=== PATIENT | female | born 1950 | race Caucasian/White ===

== ENCOUNTER → 2017-07-14 | Outpatient (CLI) | payer MEDICARE ==
[~2017-07-14] MED LIST: AVAPRO75 MG PO; Carafate1 GM PO; HYDRODIURIL25 MG PO; RANITIDINE150 MG PO
== END | disposition home or self-care (01) ==
LOC: MAMMO 13:14
DX: N63.20 Unspecified lump in the left breast, unspecified quadrant (principal)

== ENCOUNTER → 2017-07-19 | Outpatient (CLI) | payer MEDICARE ==
[2017-07-19 13:27] LABS: ACT PARTIAL THROMBO TIME 24.3 SECONDS (20.8-31.5)
== END | disposition home or self-care (01) ==
LOC: US 01:15 → LAB 01:15 → US 13:00 → EDSTATUS 13:00 → SDC 13:30
PROVIDERS: Internal Medicine
DX: Z12.39 Encounter for other screening for malignant neoplasm of breast (principal); N63.20 Unspecified lump in the left breast, unspecified quadrant; R92.8 Other abnormal and inconclusive findings on diagnostic imaging of breast

== ENCOUNTER → 2017-11-30 | Outpatient (CLI) | payer MEDICARE | END | disposition home or self-care (01) | LOC: RAD 12:46 | DX: Z13.820 Encounter for screening for osteoporosis (principal); C50.412 Malignant neoplasm of upper-outer quadrant of left female breast; Z78.0 Asymptomatic menopausal state ==

== ENCOUNTER → 2018-10-26 | Outpatient (CLI) | payer MEDICARE, OTHER | END | disposition home or self-care (01) | LOC: US 10-20 10:00 | DX: N95.0 Postmenopausal bleeding (principal) ==

== ENCOUNTER → 2021-11-27 | Outpatient (CLI) | payer MEDICARE, OTHER | END | disposition home or self-care (01) | LOC: US 09:00 | PROVIDERS: ATTEND Internal Medicine Cardiovascular Disease | DX: I65.23 Occlusion and stenosis of bilateral carotid arteries (principal) ==

== ENCOUNTER → 2021-12-10 | Outpatient (CLI) | payer MEDICARE, OTHER ==
[~2021-12-10] MED LIST changes: +ARIMIDEX1 MG PO; +B COMPLEX1 EACH PO; +CALCIUM CITRAT1 EA20 PO; +CETIRIZINE10 MG PO; +MOBIC15 MG PO
== END | disposition home or self-care (01) ==
LOC: CARD 00:52
PROVIDERS: ATTEND Internal Medicine Cardiovascular Disease
DX: R07.89 Other chest pain (principal)

== ENCOUNTER → 2022-09-23 | Day surgery (SDC) | payer MEDICARE, OTHER ==
[~2022-09-23] VITALS: Ht 170.2 cm; Wt 77.1 kg
[2022-09-23 08:00] VITALS: BP 147/89
[2022-09-23 08:54] VITALS: BP 114/46
[2022-09-23 09:09] VITALS: BP 112/50
[2022-09-23 09:18] VITALS: BP 121/51
== END | disposition home or self-care (01) ==
LOC: SDC 09-20 11:00
PROVIDERS: ATTEND Surgery
DX: Z12.11 Encounter for screening for malignant neoplasm of colon (principal); K21.9 Gastro-esophageal reflux disease without esophagitis; K29.50 Unspecified chronic gastritis without bleeding; K57.30 Diverticulosis of large intestine without perforation or abscess without bleeding; Z96.643 Presence of artificial hip joint, bilateral; I10 Essential (primary) hypertension; F41.9 Anxiety disorder, unspecified; Z85.3 Personal history of malignant neoplasm of breast

== ENCOUNTER → 2025-08-01 | Outpatient (CLI) | payer MEDICARE, OTHER ==
[~2025-08-01] MED LIST changes: +ACIPHEX20 MG PO; +ALDACTIZIDE 25-1 TAB PO; +COLCHICINE0.6 M2 PO; +FLECAINIDE ACET50 M1 PO; +HYDROCHLOROTHIA25 M1 PO; +IRBESARTAN300 M1 PO; +LASIX40 MG PO; +METOPROLOL SUCC25 M2 PO; +METOPROLOL SUCC50 M1 PO; +MULTI-VITAMIN1 EACH PO; +PANTOPRAZOLE SO40 MG PO; +TRAMADOL HCL50 MG PO; +XARE20MG PO
== END | disposition home or self-care (01) ==
LOC: LAB 11:29
PROVIDERS: ATTEND Physician Assistant
DX: N17.0 Acute kidney failure with tubular necrosis (principal)